=== PATIENT | female | born 1945 | race Caucasian/White ===

== ENCOUNTER 2016-10-29 05:47 | Day surgery (SDC) | payer BC ==
--- NOTE | ~2016-10-29 | EGD ---
EGD REPORT [facility] [address] [address] NAME: LIZZIE TALBERT : 41 STATUS : REG [facility]#: [id number] AGE: 71 ADM/REG DATE : 10/29/16 MR#: [id number] REPORT SERV DATE: 10/29/16 DICTATED BY: ARIC GROVER DATE: 10/29/16 REPORT STATUS : Draft TRANSCRIBED BY: [employer] DATE: 10/29/16 [facility] Patient Name: Lizzie Talbert Date of : 1945 Attending MD: ARIC GROVER MD Procedure Date No Time: 10/29/2016 Procedure: Upper GI endoscopy Indications: Epigastric abdominal pain, Abdominal pain in the right upper quadrant, Dysphagia Referring MD: BRANDON VERA JR. Medicines: Propofol per Anesthesia Complications: No immediate complications. Procedure: Pre-Anesthesia Assessment: - ASA Grade Assessment: II - A patient with mild systemic disease. After obtaining informed consent, the endoscope was passed under direct vision. Throughout the procedure, the patient's blood pressure, pulse, and oxygen saturations were monitored continuously. The GIF [id number] was introduced through the mouth, and advanced to the second part of duodenum. The upper GI endoscopy was accomplished without difficulty. The patient tolerated the procedure well. Findings: A small hiatus hernia was present. A mild Schatzki ring (acquired) was found at the gastroesophageal junction. A guidewire was placed and the scope was withdrawn. Dilation was performed with a Savary dilator with no resistance at 54 Fr. Diffuse moderate inflammation characterized by erosions, erythema and friability was found in the stomach. Biopsies were taken with a cold forceps for histology. The examined duodenum was normal. Impression: - Hiatus hernia. - Mild Schatzki ring. Dilated. - Chronic gastritis. Biopsied. - Normal examined duodenum. Recommendation: - Discharge patient to home (ambulatory). - Return to nurse practitioner in 3 weeks. Procedure Code(s): --- Professional --- 33582, Esophagogastroduodenoscopy, flexible, transoral; with insertion of guide wire followed by passage of EGD REPORT [address] [address] NAME: LIZZIE TALBERT : [birth year] STATUS : REG [facility] PAT#: [id number] AGE: 71 ADM/REG DATE : 10/29/16 MR#: [id number] REPORT SERV DATE: 10/29/16 DICTATED BY: ARIC GROVER. DATE: 10/29/16 REPORT STATUS : Draft TRANSCRIBED BY: [employer] DATE: 10/29/16 dilator(s) through esophagus over guide wire 37177, Esophagogastroduodenoscopy, flexible, transoral; with biopsy, single or multiple Diagnosis Code(s): --- Professional --- K44.9, Diaphragmatic hernia without obstruction or gangrene K22.2, Esophageal obstruction K29.50, Unspecified chronic gastritis without bleeding R10.13, Epigastric pain R10.11, Right upper quadrant pain R13.10, Dysphagia, unspecified CPT copyright 2013 [employer]. All rights reserved. The codes documented in this report are preliminary and upon orthopedic coder review may be revised to meet current compliance requirements. Aric Grover MD ARIC GROVER MD 10/29/2016 7:13 AM This report has been signed electronically. Number of Addenda: 0 Note Initiated On: 10/29/2016 6:53 AM Scope Withdrawal Time 0 hours 0 minutes 0 seconds [address] [address]
[~2016-10-29 05:47] MED LIST: CAT2 PO; CRESTOR10 PO; D 5000 PO; DEXALANT PO; DSS PO; FISH OIL1200 MG PO; FOLIC ACID400 MC1 PO; FORTICAL200 MG/ACT NAS; KAPIDEX60 MG PO; LYRICA50 PO; MAGNESIUM 250MG OTC PO; MAXZIDE PO; MEVACOR PO; MEVACOR40 MG PO; MICRO-K10 MEQ PO; MIRALAXPKT PO; NEX; NEXIUM; NEXIUM20 M1 PO; OCUVITE PO; OMNICEF300 PO; PREV30 PO; SPIRO25 PO; SUCR PO; TUMSROLL PO; VERELAN240 MG PO; VITAMIN D PO
== END 2016-10-29 23:59 | disposition home or self-care (01) ==
LOC: DMU 05:47
PROVIDERS: Internal Medicine Gastroenterology
PROC: 0D758ZZ Dilation of Esophagus, Via Natural or Artificial Opening Endoscopic (ICD-10-PCS; principal; 2016-10-29 07:00)
PROC: 0DB68ZX Excision of Stomach, Via Natural or Artificial Opening Endoscopic, Diagnostic (ICD-10-PCS; 2016-10-29 07:00)
DX: K29.50 Unspecified chronic gastritis without bleeding (principal); K22.2 Esophageal obstruction; K44.9 Diaphragmatic hernia without obstruction or gangrene; I10 Essential (primary) hypertension; E78.00 Pure hypercholesterolemia, unspecified; Z88.3 Allergy status to other anti-infective agents; Z88.6 Allergy status to analgesic agent; Z88.1 Allergy status to other antibiotic agents; Z88.5 Allergy status to narcotic agent; Z88.8 Allergy status to other drugs, medicaments and biological substances; Z90.49 Acquired absence of other specified parts of digestive tract; Z90.710 Acquired absence of both cervix and uterus; Z98.890 Other specified postprocedural states
CPT/HCPCS: 88305